=== PATIENT | female | born 1980 | race Asian ===

== ENCOUNTER 2022-04-03 19:52 | Emergency (ER) | payer MEDICAID ==
[~2022-04-03] VITALS: Ht 157.5 cm; Wt 54.4 kg
[2022-04-03 20:48] VITALS: BP_SYST 128
--- NOTE | 2022-04-03 21:00 | NUR ---
PT FROM HOME WITH C/O PAIN TO THE LEFT SIDE AND RIGHT FOOT. REPORTS PAIN 6/10. PT REPORTS HAVING FELL 1 MONTH AGO AND THAT IS WHEN THE PAIN STARTED. PT AMBULATORY AND FOLLOWING COMMANDS.
== END 2022-04-03 21:02 | disposition left against medical advice (07) ==
LOC: SED 19:52
DX: M79.672 Pain in left foot (principal); M79.671 Pain in right foot; R07.81 Pleurodynia; Z53.21 Procedure and treatment not carried out due to patient leaving prior to being seen by health care provider